=== PATIENT | male | born 1960 | race Caucasian/White ===

== ENCOUNTER 2020-02-01 12:35 | Emergency (ER) | payer OTHER ==
--- NOTE | 2020-02-01 13:55 | EDM.PDOC ---
ED HPI GENERAL MEDICAL PROBLEM - General Chief Complaint: Upper Extremity Injury/Pain Stated Complaint: LEFT ARMINJURY Time Seen by Provider: 02/01/20 13:05 - History of Present Illness INITIAL COMMENTS - FREE TEXT/NARRATIVE: HPI 59-year-old obese male presents for evaluation of left shoulder pain that is on the superior aspect and is worsened by abduction, external rotation, and internal rotation and occurred after he had a mechanical fall from standing height onto his left arm. Patient has normal sensation is left upper extremity, normal warmth, denies head injury, head strike, takes no blood thinners or antiplatelet agents. ROS with no recent constitutional symptoms. Exam HR 94, RR 16, BP 172/111, T 36.2C, SaO2 96% on room air. Gen: Pleasant, non-toxic appearing, resting comfortably HEENT: NC, AT, PEERL, EOMI. Resp: Clear to auscultation bilaterally. Unlabored respirations with a normal work of breathing. Card: Regular rate and rhythm. Extremities warm and well perfused. GI: Non-distended. : Deferred MSK: left shoulder visually normal. Palpation with mild tenderness palpation on the superior aspect of the shoulder joint, but otherwise without tenderness or palpable abnormalities of the clavicle, scapula, shoulder, humerus, or elbow; normal warmth to touch]. Sensation grossly intact to touch over the shoulder, patient notes normal sensation to light touch over the deltoid. Full functional range of motion of the shoulder on flexion, extension, abduction, adduction, external and internal rotation. Sensation intact to touch over a medial, radial , and ulnar distribution at the hand. 2+ radial pulse, all fingers warm and well perfused. Neuro: alert and oriented 3, no facial asymmetry, vision and hearing WNL. Heme/Lymph: Deferred Skin: Normal color with no visible lesions (other than noted above). Psych: Mood and affect appropriate. XR L Shoulder: no acute traumatic abnormalities. Radiologist read pending. MDM Previous chart, nursing note, and vitals reviewed. A: 59-year-old obese male presents for evaluation of left shoulder pain that is on the superior aspect and is worsened by abduction, external rotation, and internal rotation and occurred after he had a mechanical fall from standing height onto his left arm. DDx & Evaluation: CMS intact, exam without evidence of crystalline or septic arthropathy, imaging without evidence of fracture, dislocation, a.c. injury, or calcific tendinitis. Suspect rotator cuff injury. Patient offered sling, instructed to use NSAIDs, PCP follow-up recommended. Impression: left shoulder pain. leftr shoulder Pain Score (Numeric/FACES): 6 - Related Data Allergies Allergy/AdvReac Type Severity Reaction Status Date / Time No Known Allergies Allergy Verified 02/01/20 13:00 Home Meds: Home Meds . [No Known Home Meds] 12/15/14 [History] Past Medical History - Past Health History Medical/Surgical History: Denies Medical/Surgical History HEENT History: Reports: None Cardiovascular History: Reports: None Respiratory History: Reports: None Gastrointestinal History: Reports: None Genitourinary History: Reports: None Musculoskeletal History: Reports: None Neurological History: Reports: None Psychiatric History: Reports: None Endocrine/Metabolic History: Reports: None Hematologic History: Reports: None Immunologic History: Reports: None Oncologic (Cancer) History: Reports: None Dermatologic History: Reports: None - Infectious Disease History Infectious Disease History: Reports: Measles, Mumps - Past Surgical History Head Surgeries/Procedures: Reports: None HEENT Surgical History: Reports: None Cardiovascular Surgical History: Reports: None Respiratory Surgical History: Reports: None GI Surgical History: Reports: None Male Surgical History: Reports: None Endocrine Surgical History: Reports: None Neurological Surgical History: Reports: None Musculoskeletal Surgical History: Reports: None Oncologic Surgical History: Reports: None Dermatological Surgical History: Reports: None Social & Family History - Family History Family Medical History: Noncontributory - Tobacco Use Smoking Status *Q: Never Smoker Second Hand Smoke Exposure: No - Caffeine Use Caffeine Use: Reports: None - Recreational Drug Use Recreational Drug Use: No Review of Systems - Review of Systems Review Of Systems: See Below ED EXAM, GENERAL - Physical Exam Exam: See Below Course - Vital Signs Last Recorded V/S: Last Vital Signs Temp 36.2 C 02/01/20 13:00 Pulse 94 02/01/20 13:00 Resp 16 02/01/20 13:00 BP 172/111 H 02/01/20 13:00 Pulse Ox 96 02/01/20 13:00 - Orders/Labs/Meds Orders: Active Orders 24 hr Category Date Time Status Communication Order [RC] STAT Care 02/01/20 13:54 Ordered Shoulder Comp Lt [CR] Stat Exams 02/01/20 13:14 Ordered Departure - Departure Time of Disposition: 13:55 Disposition: Home, Self-Care 01 Clinical Impression: Shoulder pain - Discharge Information Referrals: PCP,None [Primary Care Provider] - Additional Instructions: You were in seen in the [facility] Emergency Department for evaluation of left shoulder pain after a fall from standing height. The time of your evaluation the emergency department you are tentatively believed to have a rotator cuff injury. This injury will likely resolve over weeks to months but may be treated with physical therapy. Please read and follow all of the instructions below. Please follow up with your primary care physician in 2 days for repeat evaluation of your shoulder injury as well as repeat evaluation of your asymptomatic hypertension and further care as appropriate. When calling for follow-up care, please make the office aware that this follow-up is from your recent emergency room visit. If for any reason you are refused follow-up, please contact the [facility] Emergency Department at and asked to speak to the emergency department charge nurse. Your care today was limited to identifying and treating emergent medical problems only. Many people have subtle differences in their test results that require follow up with their outpatient physician(s) to correctly determine if this represents a normal variation or concerning abnormality with respect to your specific health. The care given to you today was limited to identifying and treating emergent medical problems - you need to request a copy of all of your medical records from today's visit and follow up with your outpatient physician(s) to review both today's visit and your overall health. If you have any new symptoms or if you are at all concerned about your health please return immediately to the emergency department. You make take over the counter Acetaminophen (Tylenol) and Ibuprofen (Motrin or Aleve) as directed below for relief of pain. Take 600 mg of ibuprofen (three 200 mg tablets) with a glass of water every 6-8 hours as needed for pain or fever. Do not take if you have ulcers, GI bleeding, are , or are allergic to ibuprofen. Take 1,000 mg of acetaminophen (two 500 mg tablets) with a glass of water every 6-8 hours as needed for pain. Do not take if you are allergic to acetaminophen. If you have liver disease, please reduce your dose to a maximum of 2,000 mg per day. You can take these medications at the same time or on separate schedules. Do not take for more than 10 days. Do not take with alcohol or other acetaminophen containing medications. This medication may cause a mildly upset stomach, if so take it with a small snack. Stop taking it if you have persistent abdominal pain, heartburn, or any stomach pain. Do not take this medication if you have known ulcers. Please read the warnings at the end of this document regarding these medications. IBUPROFEN WARNING: This drug may infrequently cause serious (rarely fatal) bleeding from the stomach or intestines. Also, related drugs rarely have caused blood clots to form, resulting in heart attacks and strokes. This medication might also rarely cause similar problems. Talk to your doctor or pharmacist about the benefits and risks of treatment, as well as other possible medication choices. If you notice any of the following rare but very serious side effects, stop taking ibuprofen and seek immediate medical attention: black stools, persistent stomach/abdominal pain, vomit that looks like coffee grounds, chest pain, weakness on one side of the body, sudden vision changes, slurred speech. IBUPROFEN SIDE EFFECTS: Upset stomach, nausea, vomiting, heartburn, headache, diarrhea, constipation, drowsiness, and dizziness may occur. If any of these effects persist or worsen, notify your doctor or pharmacist promptly. If your doctor has directed you to use this medication, remember that he or she has judged that the benefit to you is greater than the risk of side effects. Many people using this medication do not have serious side effects. Tell your doctor immediately if any of these serious side effects occur: stomach pain, swelling of the hands or feet, sudden or unexplained weight gain, ringing in the ears ( tinnitus). Tell your doctor immediately if any of these unlikely but serious side effects occur: vision changes, rapid or pounding heartbeat, easy bruising or bleeding, difficult/painful swallowing. Tell your doctor immediately if any of these highly unlikely but very serious side effects occur: change in amount of urine, severe headache, very stiff neck, mental/mood changes, persistent sore throat or fever. This drug may rarely cause serious (possibly fatal) liver disease. If you notice any of the following highly unlikely but very serious side effects, stop taking ibuprofen and consult your doctor or pharmacist immediately: yellowing eyes and skin, dark urine, unusual/extreme tiredness. An allergic reaction to this drug is unlikely, but seek immediate medical attention if it occurs. Symptoms of an allergic reaction include: rash, itching/ swelling (especially of the face/tongue/throat), severe dizziness, trouble breathing. This is not a complete list of possible side effects. ACETAMINOPHEN SIDE EFFECTS: This drug usually has no side effects. If you do not have liver problems, the maximum dose of acetaminophen for adults is 4 grams per day (4000 milligrams). Taking more than the maximum daily amount may cause serious (possibly fatal) liver damage. Get medical help right away if you have any of the following symptoms of liver damage: persistent nausea/vomiting, extreme tiredness, stomach/abdominal pain, yellowing eyes/skin, dark urine. If you have liver problems, consult your doctor or pharmacist for a safe dosage of this medication. A very serious allergic reaction to this drug is rare. However , get medical help right away if you notice any symptoms of a serious allergic reaction, including: rash, itching/swelling (especially of the face/tongue/ throat), severe dizziness, trouble breathing. This is not a complete list of possible side effects. If you notice other effects not listed above, contact your doctor or pharmacist. DRUG INTERACTIONS: Your healthcare professionals (e.g., doctor or pharmacist) may already be aware of any possible drug interactions and may be monitoring you for it. Do not start, stop or change the dosage of any medicine before checking with them first. This drug should not be used with the following medications because very serious interactions may occur: cidofovir, ketorolac. If you are currently using any of these medications listed above, tell your doctor or pharmacist before starting ibuprofen. Before using this medication, tell your doctor or pharmacist of all prescription and nonprescription/herbal products you may use, especially of: anti-platelet drugs (e.g., cilostazol, clopidogrel), oral bisphosphonates (e.g., alendronate), other medications for arthritis (e.g., aspirin, methotrexate), "blood thinners" (e.g., enoxaparin, heparin, warfarin), corticosteroids (e.g., prednisone), cyclosporine, desmopressin, high blood pressure drugs (including MARLENY inhibitors such as captopril, angiotensin II receptor antagonists such as losartan, and beta- blockers such as metoprolol), lithium, pemetrexed, "water pills" (diuretics such as furosemide, hydrochlorothiazide, triamterene). Check all prescription and nonprescription medicine labels carefully for other pain/fever drugs ( NSAIDs such as aspirin, celecoxib, naproxen). These drugs are similar to ibuprofen, so taking one of these drugs while also taking ibuprofen may increase your risk of side effects. Consult your doctor or pharmacist for more details. However, if your doctor has prescribed low doses of aspirin to prevent heart attack or stroke (usually at dosages of 81-325 milligrams a day), you should continue to take the aspirin. Daily use of ibuprofen may decrease aspirin 's ability to prevent heart attack/stroke. Talk to your doctor about using a different medication (e.g., acetaminophen) to treat pain/fever. If you must take ibuprofen, talk to your doctor about possibly taking immediate-release aspirin (not enteric-coated) while also taking the ibuprofen dose apart from your aspirin dose. Do not increase your daily dose of aspirin or change the way you take aspirin/other medications without your doctor's approval. This document does not contain all possible interactions. Therefore, before using this product, tell your doctor or pharmacist of all the products you use. Keep a list of all your medications with you, and share the list with your doctor and pharmacist. Prescriptions: If you are uninsured or have financial difficulties with filling your prescription(s), you may consider using a free pharmacy discount service such as [employer]Rx ([employer]) or Webt[employer] (Original). These services allow you to search for a medication on your phone (or computer) and obtain a coupon that usually has a significant discount from the list bailon at a pharmacy. Your physician as well as [facility] does not have a financial relationship with either of these services. You may also wish to speak with your physician to determine if lower cost prescriptions are possible. Obtaining primary care: 1. [facility] provides pediatrics (children), family medicine (children, adults, and some obstetrical care), and internal medicine (adults). Further specialty care is also available. Same day appointments are available. They may be contacted at [phone] and are open Saturday through Saturday 8 AM to [address] [facility] are located at [place] [address]. 2. [facility] offers family medicine, internal medicine, [facility], and further specialty care. [facility] may be contacted at [phone]. [facility] is located at [address] [place], [address]. 3. If you have health insurance, please also contact your insurer for a list of accepting providers under your policy, you may contact these providers for further health care. Occupational health: Work related injuries may consider following up with [facility], . Occupational health services are located at [address] [place] [id number] and are open Saturday through Saturday from 7: 30 am to 5:00 pm. Obstetrical and Gynecological Care: [facility], , Saturday through Saturday 8 AM to [address] [place] [address]. Eyecare: If you have an eye injury you should follow up with your application support or with [facility], at [phone] or [phone] , they are located at [address] [place] [address]. Dental Care Immanuel Andrews DDS. [address] [facility], [place], [place]. Ph. [phone] Garret Andrews DDS MS. [address] [facility] [address], [place], [place]. Ph. [phone] Pablo Peraza DDS. [address] [place]. Ph. [phone] Eliazar Dodd DDS. [address] [facility] [address] [place], [place]. Ph. [phone] Chandana Lewis DDS PC. [address] [facility] [address] [place], [place]. Ph. [phone] Yaritza Breen DDS. [address] [facility]. Ph. [phone] [facility]. [address] [place], [place]. Ph. [phone] [facility]. [address] [place] [address], [place], [place]. Ph. [phone] [facility] [address] [place] [phone]. Ph. [facility]. [address] [place] [address] [address] [place], [place]. Ph. [phone] [facility]. [address] [place]. Ph. Sepsis Event Note - Evaluation Sepsis Screening Result: No Definite Risk - Focused Exam Vital Signs: Vital Signs Temp Pulse Resp BP Pulse Ox 02/01/20 13:00 36.2 C 94 16 172/111 H 96 Date Exam was Performed: 02/01/20 Time Exam was Performed: 13:54 - My Orders Last 24 Hours: My Active Orders 02/01/20 13:14 Shoulder Comp Lt [CR] Stat 02/01/20 13:54 Communication Order [RC] STAT - Assessment/Plan Last 24 Hours: My Active Orders 02/01/20 13:14 Shoulder Comp Lt [CR] Stat 02/01/20 13:54 Communication Order [RC] STAT
--- NOTE | 2020-02-01 14:15 | CR ---
Left shoulder: 3 views left shoulder were obtained. Comparison: No previous study. Small inferior hook is noted off the acromion process. Minimal degenerative change is noted within the acromioclavicular joint. Glenohumeral joint appears within normal limits. No acute fracture or other bony abnormality is appreciated. Impression: 1. Slight degenerative change as noted above. 2. Nothing acute is appreciated on three-view left shoulder exam. Diagnostic code #2 This report was dictated in [place] Standard Time
[2020-02-01 14:18] VITALS: BP 138/95; PULSE 89
== END 2020-02-01 14:16 | disposition home or self-care (01) ==
LOC: MW.ED 12:35
DX: M25.512 Pain in left shoulder (principal); E66.9 Obesity, unspecified; Z68.36 Body mass index [BMI] 36.0-36.9, adult; W17.89XA Other fall from one level to another, initial encounter
CPT/HCPCS: 73030-26-LT; 73030-LT; 99283; 99283-25